=== PATIENT | male | born 1945 | race Caucasian/White ===

== ENCOUNTER 2022-09-20 15:47 | Outpatient (RCR) | payer MEDICARE, OTHER ==
[~2022-09-20 15:47] MED LIST: ALLEGRA 180MG180 MG PO; ASPIRIN 81M81 MG/TA2 PO; B COMPLEX #11 TA1 PO; CALCIUM CITRAT950 MG PO; CELEXA 20MG20 MG/TAB PO; COD LIVER OIL1 CAP PO; MAGNESIUM200 MG PO; MASON NATURAL600 MG PO; MULTIPLE VITAMI1 TA1 PO; NATURAL E400 IU PO; OMEGA-3 FISH1000 MG PO; PHARMASSURE ZIN50 MG PO; SAW PALMETTO 101 SGL PO; VITAMIN D31000 I1 PO
== END 2022-09-22 | disposition still patient (30) ==
LOC: COL.CR
DX: Z95.1 Presence of aortocoronary bypass graft (principal); Z48.812 Encounter for surgical aftercare following surgery on the circulatory system

== ENCOUNTER → 2022-10-23 | Outpatient (RCR) | payer MEDICARE, OTHER | END | disposition home or self-care (01) | LOC: COL.CR | DX: Z48.812 Encounter for surgical aftercare following surgery on the circulatory system (principal); Z95.1 Presence of aortocoronary bypass graft ==